=== PATIENT | female | born 2000 | race Caucasian/White ===

== ENCOUNTER 2022-03-02 17:28 | Emergency (ER) | payer BC, MEDICAID, SELFPAY ==
[2022-03-02 17:29] VITALS: BP 150/95; PULSE 107; RESP 16; TEMP 36.6; O2SAT 100; BMI 24.7
--- NOTE | 2022-03-02 18:09 | EDS_ITS ---
HPI History of Present Illness Chief Complaint: Lower Extremity Injury Narrative Narrative: Patient presents with injury to her left knee that she sustained 8 days ago. She states she fell on Friday onto a table, striking her left knee cap. She went to an outside facility where they updated her tetanus immunization and tended to her laceration. She states they did not perform an x-ray and now she has pain and swelling underneath her knee cap. It hurts when she tries to flex her left knee. She is able to flex and extended but it hurts when she walks. She denies any fever or chills, no nausea or vomiting, no other symptoms. PFSH PFS Medical History no medical history Allergy/AdvReac Type Severity Reaction Status Date / Time No Known Allergies Allergy Verified 03/02/22 17:30 Surgical History no surgical history Social History Smoking Status: Never smoker ROS ROS ED Constitutional Constitutional ED: Denies chills, fever(s), subjective, sweats, weight loss or other Cardiovascular Cardiovascular: Denies orthopnea or paroxysmal nocturnal dyspnea Respiratory/Chest Respiratory/Chest: Denies cough, dyspnea, dyspnea on exertion, orthopnea, paroxysmal nocturnal dyspnea, sputum or other Gastrointestinal Gastrointestinal: Denies abdominal pain, constipation, diarrhea, nausea, vomiting or other Genitourinary Genitourinary ED: Denies dysuria, hematuria, LMP (females 10-50), urinary frequency or other Musculoskeletal Musculoskeletal: Reports arthralgias, joint pain and limited range of motion Neurologic Neurologic: Denies headache(s), paresthesias, weakness or other Hematologic/Lymphatic Hematologic/Lymphatic: Denies easy bleeding, easy bruising, lymphadenopathy or other EXAM Physical Exam Const Vital Signs: 03/02/22 17:29 03/02/22 18:14 03/02/22 19:24 Temperature 97.8 F Temperature Source Temporal Pulse Rate 107 H 107 H Respiratory Rate 16 15 Blood Pressure 150/95 H 119/66 150/95 H Blood Pressure Mean 113 83 Pulse Ox 100 100 Oxygen Delivery Method Room Air HEENT Reports moist mucous membranes and other other Eyes PERRL Neck full ROM and supple Cardio regular rate, regular rhythm, S1 normal heart sound, S2 normal heart sound and no murmurs GI non-tender, non-distended and no masses Extremity Extremity Narrative: Healed laceration on patella. Extention and flexion mechanism of left knee intact. Able to raise leg of bed without difficulty. Neurovascularly intact distally with palpable dorsalis pedis pulse. EHL intact. MDM MDM MDM Narrative Medical decision making narrative: Xrays of the left knee were obtained in 4 views and interpreted by myself. I see no evidence of acute fracture. At this point in time, she will be placed in an kimmy wrap and use over the counter analgesics as needed. She will follow up with her primary care physician. I feel she can be discharged home with follow up. Return instructions to the emergency department were reviewed. Disposition is discharged home in stable condition. Clinical Impression: Left knee pain, left knee contusion. Radiography Diagnostic Testing: Clinical Impression(s) from Imaging Studies Knee X-Ray 03/02/22 18:25 IMPRESSION: Normal x-ray examination of the knee. Electronically Signed: Nam Alves DO at 19:54 EDT Reading Location ID and State: [address] [place] [address] Tel [phone], Service support , Discharge Plan Triage Chief Complaint: Lower Extremity Injury ED Provider: King Reynolds Dx/Rx/DC Orders Clinical Impression: Left knee pain, Contusion of knee, left Instructions: ED Contusion, Lower Extremity, ED Knee Pain of Uncertain Cause Primary Care Provider: Eb Nava Referrals: Eb Nava MD [Primary Care Provider] - 5-7 Days Disposition Disposition: Home, Self Care Discharge Date/Time: 03/02/22 19:24
[2022-03-02 18:14] VITALS: BP 119/66
--- NOTE | 2022-03-02 18:25 | RAD_ITS ---
STUDY: X-RAY - LEFT KNEE REASON FOR EXAM: Female, 21 years old. Fall one week ago. Left knee pain with walking. Laceration near patella. TECHNIQUE: 4 view(s) of the knee. COMPARISON: None. FINDINGS: Normal visualized distal femur. Normal visualized proximal tibia and fibula. Normal proximal tibiofibular articulation. There is no acute fracture, dislocation or destructive osseous pathology. Normal medial femorotibial compartment. Normal lateral femorotibial compartment. Normal patellofemoral articulation. There is no demonstrated joint effusion. The soft tissue structures are unremarkable. RAD/Knee 4 or More Views IMPRESSION: Normal x-ray examination of the knee. Electronically Signed: Nam Alves DO at 19:54 EDT Reading Location ID and State: [address] [place] [address] Tel [phone], Service support ,
[2022-03-02 19:24] VITALS: BP 150/95; PULSE 107; RESP 15; O2SAT 100
== END 2022-03-02 19:24 | disposition home or self-care (01) ==
PROVIDERS: Emergency Provider Emergency Medicine; PCP Family Medicine; Visit Provider Emergency Medicine
DX: S80.02XA Contusion of left knee, initial encounter (principal); W19.XXXA Unspecified fall, initial encounter
CPT/HCPCS: 73564; 99282